=== PATIENT | female | born 2000 | race Caucasian/White ===

== ENCOUNTER 2023-04-27 03:48 | Emergency (ER) | payer MEDICAID ==
[~2023-04-27] VITALS: Ht 172.7 cm; Wt 100.0 kg
[2023-04-27 03:52] VITALS: O2SAT 98
[2023-04-27] MEDS ORDERED: BACITRACIN ZINC OINT UDPKT TOP ONE (04:15)
[2023-04-27] MEDS ORDERED: LIDOCAINE HCL/PF 1% 10 MG/ML 5ML VIAL INFIL ONE (04:15)
[2023-04-27] MEDS ORDERED: ONDANSETRON HCL 4MG/2ML INJ IV STA (04:50)
[2023-04-27] MEDS ORDERED: MORPHINE SULFATE 4 MG/ML CPJ (NOT FOR IM USE) IV STA (04:50)
[2023-04-27] MEDS ORDERED: ONDANSETRON HCL 4MG/2ML INJ IV ONE (05:30)
[2023-04-27] MEDS ORDERED: PROPOFOL 200MG/20ML VIAL IV PRN (05:30)
[2023-04-27] MEDS ORDERED: FENTANYL CITRATE/PF 50MCG/ML 2ML VIAL IV ONE ×2 (06:00→07:15)
[2023-04-27] MEDS ORDERED: IOHEXOL-300 100 ML BOTTLE ONE (07:00)
[2023-04-27 07:44] VITALS: BP 129/70; PULSE 100; RESP 21; TEMP 97.6
== END 2023-04-27 08:34 | disposition short-term general hospital (02) ==
LOC: ER 03:54 → EDBD 03:54 → ER 08:34
DX: S52.501A Unspecified fracture of the lower end of right radius, initial encounter for closed fracture (principal); M79.641 Pain in right hand; X58.XXXA Exposure to other specified factors, initial encounter; Y93.89 Activity, other specified; Y92.89 Other specified places as the place of occurrence of the external cause; Y99.8 Other external cause status
CPT/HCPCS: 71045; 73110; 73130; 73610; 70450; 71260; 72125; 74177; 29515; 96374; 96375; 96376; 99291; J3010; Q9967; J3490; J2405; J2270; Z7610 ×3